=== PATIENT | male | born 2005 | race Caucasian/White ===

== ENCOUNTER 2025-03-28 00:44 | Emergency (ER) | payer BC, MEDICAID ==
[~2025-03-28] VITALS: Ht 170.2 cm; Wt 73.0 kg
[2025-03-28 01:35] VITALS: O2SAT 99
[2025-03-28] MEDS: KETOROLAC 30MG/ML VIAL IM ONE (02:35)
[2025-03-28] MEDS: CYCLOBENZAPRINE 10MG TABLET PO ONE (02:35)
[2025-03-28] MEDS ORDERED: IBUP-1455 MT (03:29)
[2025-03-28] MEDS ORDERED: CYCL10TA21 MT (03:29)
[2025-03-28 03:45] VITALS: BP 119/84; PULSE 75; RESP 14; TEMP 36.5; O2SAT 96
== END 2025-03-28 03:50 | disposition home or self-care (01) ==
LOC: ER 00:44
DX: M54.50 Low back pain, unspecified (principal)
CPT/HCPCS: 99283; 96372; J1885